=== PATIENT | female | born 1955 | race Hispanic/Latino ===

== ENCOUNTER → 2024-11-05 | Outpatient (CLI) | payer OTHER ==
--- NOTE | 2024-11-05 14:45 | HMCIMG ---
CT CORONARY CALCIFICATION SCORING: Anatomic images were reviewed. The calcium score is being generated and reported separately. This report is for the visualized anatomy only. Visualized portions of the lungs are clear. Hilar and mediastinal structures appear normal. Osseous structures are unremarkable. Impression: 1. Negative noncardiac anatomic findings. 2. The calcium score is 317.5 consistent with a moderate degree of calcified plaque. This is 90th percentile for a patient this age. CT was performed with one or more following dose reduction techniques: automated exposure control, adjustment of the mA and kv according to patient's size, or use of a iterative reconstruction technique.
== END | disposition home or self-care (01) ==
LOC: EDUNIT# 10-30 13:00 → RAH 13:04
PROVIDERS: ATTEND Internal Medicine Cardiovascular Disease
DX: Z13.6 Encounter for screening for cardiovascular disorders (principal)
CPT/HCPCS: 75571

== ENCOUNTER → 2024-11-06 | Outpatient (CLI) | payer OTHER ==
--- NOTE | 2024-11-11 10:33 | HMCSR ---
APPROVED REPORT EXAM: Two-dimensional and M-mode echocardiogram with Doppler and color Doppler. INDICATION ICD: R06.00 Dyspnea 2D Dimensions RVDd3.7 cmLVEF(%)60.8 (>50%)LVED Vol(simp.)138.0 mL IVSd0.9 (0.7-1.1cm)FS(%)33 %LVES Vol(simp.)59.0 mL LVDd5.1 (3.8-5.6cm)Ao Root(2D)2.8 (2.0-3.7cm)LVEF(%, simp.)57 % PWd1.1 (0.7-1.1cm)LVOT diam2.0 (1.8-2.4cm)LA ESV INDEX (BP)33.23 mL/m2 LVDs3.4 (2.5-4.0cm)IVC diam1.6 cm Aortic Valve AoV Vmax1.8 m/Yomi Peak GR13.7 mmHgLVOT Vmax0.9 m/s AoV VTI0.5 mAo Mean GR8.0 mmHgLVOT VTI0.25 m DENICE (VMAX)1.7 cm2Al P1/2T529 msAVA (VTI) 1.7 cm2 Mitral Valve MV E Spux534.1 cm/sDECEL Gjhp441 ms MV A Evzt221.0 cm/sP 1/2 T50 ms E/A ratio0.9MVA (PHT)4.4 cm2 MR Max PG112 mmHg TDI E/E' Mhglhd10.7E/E' Yacbvtk08.1 Pulmonary Valve PV Vmax1.4 m/sPV VTI0.35 mPV Mean GR4 mmHg PV Peak GR7.4 mmHg Tricuspid Valve TR Vmax3.1 m/sRAP (EST) 3 klJjKXMW93.9 mmHg TR Peak GR38.9 mmHg Left Ventricle Left ventricular cavity size is normal. There is normal LV segmental wall motion. There is borderline to mild left ventricular hypertrophy. LVEF is 55-60%. No left ventricle thrombus noted on this study . Grade 2 diastolic dysfunction. Right Ventricle The right ventricle is normal size. The right ventricular systolic function is normal. Atria The left atrium size is normal. The right atrium is mildly dilated. Aortic Valve Aortic valve is trileaflet. Aortic valve leaflets are sclerotic but open well. Trace aortic regurgita tion. There is no aortic valvular stenosis. Mitral Valve The mitral valve is mildly thickened. Mitral regurgitation is trace to mild. There is no mitral valve stenosis. Tricuspid Valve The tricuspid valve leaflets appear normal. There is trace to mild tricuspid regurgitation. Right ines tricular systolic pressure is estimated at 40-50 mmHg. Pulmonic Valve The pulmonic valve is mildly thickened. There is trace pulmonic valvular regurgitation. Great Vessels The aortic root is normal in size. The IVC is normal in size and collapses >50% with inspiration. Pericardium No pericardial effusion. Conclusion Left ventricular cavity size is normal. LVEF is 55-60%. Grade 2 diastolic dysfunction. The right ventricle is normal size. The left atrium size is normal. Aortic valve is trileaflet. Aortic valve leaflets are sclerotic but open well. Trace aortic regurgitation. The mitral valve is mildly thickened. Mitral regurgitation is trace to mild. There is no mitral valve stenosis. There is trace to mild tricuspid regurgitation. Right ventricular systolic pressure is estimated at 40-50 mmHg. There is trace pulmonic valvular regurgitation. The aortic root is normal in size. The IVC is normal in size and collapses >50% with inspiration. No pericardial effusion.
== END | disposition home or self-care (01) ==
LOC: SHCH 13:02
PROVIDERS: ATTEND Internal Medicine Cardiovascular Disease
DX: I08.8 Other rheumatic multiple valve diseases (principal); R06.00 Dyspnea, unspecified
CPT/HCPCS: 93306

== ENCOUNTER 2025-02-23 16:28 | Emergency (ER) | payer OTHER ==
[~2025-02-23] VITALS: Ht 160 cm; Wt 108.9 kg
[2025-02-23 16:43] VITALS: BP 170/62; PULSE 72; RESP 16; TEMP 98.2; O2SAT 98
[2025-02-23] MEDS ORDERED: MUPI22OI2 TP (17:05)
--- NOTE | 2025-02-23 17:05 | ERN ---
ED Note History of Present Illness Stated Complaint: BURN WOUND Chief Complaint: Wound Check Time Seen by MD: 16:39 Time Seen by Midlevel: 16:44 Dictation: 69-year-old female coming in with complaints of a wound to her stomach area. Patient states a week ago she burned herself with hot tea. States she has been cleaning it with in his slipped and applying triple antibiotic, states today she removed the bandage and note a little bit of blood in wanted to come make sure it is not infected. Allergies: Coded Allergies: latex (Unverified Allergy, Unknown, 02/23/25) Past Medical History Past Medical History: Cancer, Diabetes-Type II, High Cholesterol, Hypertension, Renal Disese, TIA Additional Past Medical Hx: BREAST CA Surgical History: Other Surgical History Other: RT MASECTOMY Review of System Dictation Constitutional: Negative for fever,chills, and weight loss Eyes: Negative for injury, pain,redness, and discharge ENT: Negative for injury,pain or swelling Cardiovascular: Negative for chest pain, palpitations, and edema Respiratory: Negative for shortness of breath, cough, and wheezing, Abdomen/GI: Negative for abdominal pain, nausea, vomiting, diarrhea, and constipation Back: Negative for injury and pain : Negative for injury, bleeding and discharge MS/Extremity: Negative for injury and deformity Skin: Negative for rash, and discoloration Neuro: Negative for headache, weakness, numbness, tingling, and seizure Psych: Negative for suicide ideation, homicidal ideation, and hallucinations Review of Systems: was completed Initial Vital Sign VS Vital Signs Date Time Temp Pulse Resp B/P (MAP) Pulse Ox O2 Delivery O2 Flow Rate FiO2 02/23/25 16:31 98.1 73 20 174/60 98 Room Air 0 02/23/25 16:43 21 Physical Exam Dictation General: awake, alert, NAD Head/Face: Normocephalic, atraumatic Eyes: PERRL, EOMI, vision at baseline ENT: oral cavity clear, TMs clear, no signs of infection Neck: Trachea midline, supple, no nuchal rigidity Cardiovascular: RRR, normal S1/S2, No MRGs, no JVD Respiratory: CTAB, no respiratory distress, No rales or wheezes Abdomen: Soft, non-tender, non-distended, normal bowel sounds, no guarding or rebound. Skin: Warm, dry, normal turgor, no rash, wound noted to the umbilical area, consistent with a burn that had a blister and popped, there is partial scabbing in slight area in the corner where it is more raw. This is probably where the patient pulled off the bandage today and it was stuck. No surrounding erythema, no fluctuance, no drainage. No suspicious for infectious process MS/Extremity: Pulses equal, no cyanosis, neurovascular intact, FROM Neuro: COAx4, GCS 15, strength 5/5, CN 2-12 intact, normal cerebellar exam, normal gait, Psych: Normal behavior, mood, and affect normal ED Course ED Course Vital Signs Date Time Temp Pulse Resp B/P (MAP) Pulse Ox O2 Delivery O2 Flow Rate FiO2 02/23/25 16:43 98.2 72 16 170/62 98 Room Air* 0 21 02/23/25 16:31 98.1 73 20 174/60 98 Room Air 0 Medical Decision Making MDM MDM: 69-year-old female coming in with complaints of a wound to her stomach area. Patient states a week ago she burned herself with hot tea. States she has been cleaning it with in his slipped and applying triple antibiotic, states today she removed the bandage and note a little bit of blood in wanted to come make sure it is not infected. Educated patient on wound care and when to return back to the hospital. Educated patient she needs to just cleaned the area with soap and water and apply the bacitracin that they will prescribe and follow up with PCP. Patient verbalized understanding, answered all questions. Differential diagnosis: Cellulitis, abscess Rationale: Tests considered and ordered secondary to shared decision making include: Previous outside records reviewed: Old ER visits. Risk of complication and/or morbidity or mortality of patient management: None Medications-Per medication reconciliation Need for hospitalization: Patient does not meet criteria for hospitalization. Need for emergency major/minor surgery: No There are no social concerns with this patient. Prescription drug management Prescriptions will include symptomatic care Patient's prior external medical records from other ER visits were reviewed by me as indicated. Prior testing and results from previous visits were reviewed. Prior tests were taken into account with medical decision making and resource utilization, independent historian/historians were used to obtain complete medical history. I independently interpreted the test that were performed, results were reviewed by me and considered findings on radiology if ordered. Medical management and examination interpretation discussions were had by me with other qualified healthcare professionals as indicated for the patient's care. DX & DISP Disposition: Discharge Departure Impression: Primary Impression: Burn Condition: Stable Scripts Mupirocin (Mupirocin Ointment) 2 % Oint 1 APPL TP BID for 5 Days, #15 GM 0 Refills apply to affected area(s) Prov: RAMON BARBOSA NP 02/23/25 Additional Instructions: Cleaned wound with soap and water then apply the ointment. Apply the cale dhesive bandage and avoid ripping off the scab. Follow up with PCP return to the hospital if anything worsens. Referrals: LATRICE POP MD (PCP) Time of Disposition: 17:05 I have reviewed the case, and I agree with, Diagnosis and Plan RAMON BARBOSA NP February 23, 2025 17:05
== END 2025-02-23 17:12 | disposition home or self-care (01) ==
LOC: EDH 16:28
DX: T28.2XXA Burn of other parts of alimentary tract, initial encounter (principal); E11.9 Type 2 diabetes mellitus without complications; E78.00 Pure hypercholesterolemia, unspecified; I10 Essential (primary) hypertension; Z85.3 Personal history of malignant neoplasm of breast; Z86.73 Personal history of transient ischemic attack (TIA), and cerebral infarction without residual deficits; X12.XXXA Contact with other hot fluids, initial encounter; Y93.89 Activity, other specified; Y92.89 Other specified places as the place of occurrence of the external cause; Y99.8 Other external cause status
CPT/HCPCS: 99283

== ENCOUNTER 2025-08-02 19:47 | Emergency (ER) | payer OTHER ==
[~2025-08-02] VITALS: Ht 160 cm; Wt 110.7 kg
[~2025-08-02 19:47] MED LIST: MUPI22OI2 TP
--- NOTE | 2025-08-02 20:13 | NUR ---
PATIENT REPORTS SHE ACCIDENTALLY INJECTED HERSELF WITH 25 UNITS OF REGULAR INSULIN INSTEAD OF LANTUS ABOUT 1 HR [employer]
--- NOTE | 2025-08-02 20:17 | ERN ---
ED Note History of Present Illness Stated Complaint: OVER DOSE OF INSULIN Chief Complaint: Overdose Time Seen by MD: 19:53 Time Seen by Midlevel: 19:53 Dictation: The patient is a 70-year-old female with a history of diabetes, hypertension, hyperlipidemia who presents to the emergency department after accidentally confusing her Lantus with Humulin R. patient reports that she usually takes 7 units of Humulin R at bedtime and she accidentally injected 25 units subQ About 30 minutes prior to arrival. Patient currently denies any dizziness, headache, denies any complaints. Allergies: Coded Allergies: latex (Unverified Allergy, Unknown, 02/23/25) Home Meds Active Scripts Mupirocin (Mupirocin Ointment) 2 % Oint, 1 APPL TP BID for 5 Days, #15 GM 0 Refills apply to affected area(s) Prov:BARBOSARAMON GM 02/23/25 Past Medical History Past Medical History: Cancer, CVA, Diabetes-Type I, Diabetes-Type II, High Cholesterol, Hypertension, Renal Disese, TIA Additional Past Medical Hx: BREAST CA Surgical History: Hysterectomy, Other Surgical History Other: RT MASECTOMY RN Note Reviewed/Agreed w/PFSH: Yes Review of System Dictation Constitutional: Negative for fever,chills, and weight loss Eyes: Negative for injury, pain,redness, and discharge ENT: Negative for injury,pain or swelling Cardiovascular: Negative for chest pain, palpitations, and edema Respiratory: Negative for shortness of breath, cough, and wheezing, Abdomen/GI: Negative for abdominal pain, nausea, vomiting, diarrhea, and constipation Back: Negative for injury and pain : Negative for injury, bleeding and discharge MS/Extremity: Negative for injury and deformity Skin: Negative for rash, and discoloration Neuro: Negative for headache, weakness, numbness, tingling, and seizure Psych: Negative for suicide ideation, homicidal ideation, and hallucinations Initial Vital Sign VS Vital Signs Date Time Temp Pulse Resp B/P (MAP) Pulse Ox O2 Delivery O2 Flow Rate FiO2 08/02/25 19:49 98.2 97 20 241/107 97 Room Air 08/02/25 21:11 0 21 Physical Exam Dictation Vital Signs reviewed General Appearance: Alert, oriented x 3, no acute distress, well developed, nourished. Head and Face: non-traumatic. Eyes: PERRL, pink conjunctivas, eyelid no trauma, anterior chamber with arcus senilis. Ears: Pinnas intact and no signs of trauma or erythema ear canals clear and no discharge TM no erythema Nose: No discharge, no bleeding. Oropharynx: Mouth normal, tongue pink. pharynx clear,no erythema, tonsils no exudates, no abscesses noted, mucous membrane moist Neck: Supple, non-tender, no thyromegaly, no masses, no JVD, no bruits Breast:Deferred Chest:No tenderness, no crepitus, no paradoxical movement, no retractions Lungs:Clear, well-ventilated, symmetric, no rales, no wheezing, no rhonchi, no stridor, good breath sounds bilaterally Heart: Regular rate, regular rhythm, no murmur, no gallops Vascular: no peripheral edema, Abdomen: Soft, positive bowel sounds, nondistended, no guarding, nontender, no rebound, no masses no hepatomegaly, no splenomegaly, no Greenwood's sign, no hernias. Rectal: Deferred Genital: Deferred Neurological: Normal speech, motor function intact, sensory function intact Musculoskeletal: Neck nontender, full range of motion, back nontender, full range of motion, Extremities: nontender, full range of motion Skin: Color pink, dry, no turgor, no rash, no lacerations, no abrasions, no contusions. Lymphatic: Deferred Results (Laboratory/Radiology) Laboratory/Radiology Laboratory Tests Test 08/02/25 19:52 08/02/25 20:19 08/02/25 21:58 Whole Blood Glucose 209 MG/DL (70-110) H 120 MG/DL (70-110) H White Blood Count 8.1 K/uL (4.8-10.8) Red Blood Count 4.20 MIL/uL (4.00-5.50) Hemoglobin 13.0 g/dL (12.0-16.0) Hematocrit 39.2 % (36-48) Mean Corpuscular Volume 93.3 fL (79-99) Mean Corpuscular Hemoglobin 31.0 pg (27.0-33.0) Mean Corpuscular Hemoglobin Concent 33.2 g/dL (32.0-36.0) Red Cell Distribution Width 13.2 % (11.0-15.5) Platelet Count 260 K/uL (130-400) Mean Platelet Volume 10.5 fL (7.5-10.5) Immature Granulocyte % (Auto) 0.1 % (0-1) Neutrophils (%) (Auto) 49.6 % (40.0-77.0) Lymphocytes (%) (Auto) 39.6 % (21.0-51.0) Monocytes (%) (Auto) 5.3 % (3.0-13.0) Eosinophils (%) (Auto) 5.2 % (0.0-8.0) Basophils (%) (Auto) 0.2 % (0.0-5.0) Neutrophils # (Auto) 4.0 K/uL (1.8-7.7) Lymphocytes # (Auto) 3.2 K/uL (1.0-4.8) Monocytes # (Auto) 0.4 K/uL (0.1-1.0) Eosinophils # (Auto) 0.42 K/uL (0.00-0.70) Basophils # (Auto) 0.02 K/uL (0.00-0.20) Absolute Immature Granulocyte (auto 0.01 K/uL (0-1) Nucleated Red Blood Cells 0.0 % (0.0-0.19) Sodium Level 143 mmol/L (136-145) Potassium Level 3.1 mmol/L (3.5-5.1) L Chloride Level 103 mmol/L (101-111) Carbon Dioxide Level 29 mmol/L (21-32) Blood Urea Nitrogen 37 mg/dL (7-18) H Creatinine 1.9 mg/dL (0.5-1.0) H Glomerular Filtration Rate Calc 28 mL/min (>90) Random Glucose 220 mg/dL (70-105) H Total Calcium 9.0 mg/dL (8.5-10.1) Labs Reviewed?: Yes ED Course ED Course Orders Procedure Category Date Status Time Cbc With Differential LAB 08/02/25 Complete 19:51 Basic Metabolic Panel LAB 08/02/25 Complete 19:51 Bedside Glucose CPOE 08/02/25 Transmitted Fingerstick 19:51 *Nursing CPOE 08/02/25 Transmitted Communication: 20:05 Hydralazine 20mg Inj PHA 08/02/25 Complete (Apresoline 20mg In 21:00 Potassium Bicarb/Cit PHA 08/02/25 Complete Ac 25meq (K-Lyte Ta 21:30 Bedside Glucose CPOE 08/02/25 Transmitted Fingerstick 21:41 Current Medications Medications (Trade) Dose Ordered Sig/Yordy Route PRN Reason Start Time Stop Time Status Last Admin Dose Admin Hydralazine HCl (APRESOLine 20MG INJ) 10 mg ONCE ONCE IV 08/02/25 21:00 08/02/25 21:01 DC 08/02/25 21:24 Potassium Bicarbonate (K-Lyte Tablet Eff 25 Meq Tablet.eff) 25 meq ONCE ONCE PO 08/02/25 21:30 08/02/25 21:31 DC 08/02/25 21:39 Vital Signs Date Time Temp Pulse Resp B/P (MAP) Pulse Ox O2 Delivery O2 Flow Rate FiO2 08/02/25 22:57 98.4 68 18 157/85 97 Room Air* 0 21 08/02/25 21:49 77 18 163/63 98 Room Air* 0 21 08/02/25 21:24 195/78 08/02/25 21:11 68 18 200/75 98 Room Air* 0 21 08/02/25 19:49 98.2 97 20 241/107 97 Room Air Medical Decision Making MDM The patient is a 70-year-old female with a history of diabetes, hypertension, hyperlipidemia who presents to the emergency department after accidentally confusing her Lantus with Humulin R. patient reports that she usually takes 7 units of Humulin R at bedtime and she accidentally injected 25 units subQ About 30 minutes prior to arrival. Patient currently denies any dizziness, headache, denies any complaints. CBC showed no leukocytosis, no anemia, chemistry showed initial glucose of one only, mild hypokalemia. Patient's potassium was replaced. Patient was also fed. Glucose trends down but remained stable. Patient has a continues monitoring device and patient advised to continue monitoring glucose at home. Patient reports she had not eaten dinner. Patient advised to you did not refill going to bed. Patient reports history of CKD . Patient otherwise in no acute distress, nontoxic appearance, asymptomatic. Differential diagnosis: Hypoglycemia, electrolyte imbalance, accidental overdose Need for hospitalization: Patient does not meet criteria for hospitalization. There are no social concerns with this patient. DX & DISP Disposition: Discharge Departure Impression: Primary Impression: Accidental overdose of insulin Additional Impressions: Hypokalemia, CKD (chronic kidney disease) Condition: Stable Additional Instructions: Please continue to monitor your blood glucose at home. Make sure you eat dinner before going to bed tonight. If you sugar decreases in you are not able to bring it up please return to ER for further evaluation. FOLLOW-UP WITH PRIMARY CARE PROVIDER IN 1 TO 2 DAYS. TAKE MEDICATIONS DIRECTED HERE IN THE EMERGENCY ROOM. OKAY TO CONTINUE HOME MEDICATIONS UNLESS OTHERWISE DISCUSSED DURING YOUR VISIT IN THE EMERGENCY ROOM TODAY. RETURN TO YOUR NEAREST EMERGENCY ROOM IF SYMPTOMS WORSEN OR IF THERE IS NO IMPROVEMENT. CALL 911 IF YOU NEED IMMEDIATE ASSISTANCE. TAKE TYLENOL [id number] NEEDED AND IF NO CONTRAINDICATIONS ARE PRESENT. INCREASE ORAL HYDRATION. A WOUND CULTURE OR URINE CULTURE WAS ORDERED HERE IN THE EMERGENCY ROOM DEPARTMENT PLEASE FOLLOW-UP WITH PRIMARY CARE PROVIDER AND ADVISE THEM TO GET REPEAT PORTS FROM OUR FACILITY. IF YOU HAD ANY DOTTY WRAP/SPLINTS THAT WERE APPLIED HERE, PLEASE DO NOT REMOVE THEM UNTIL YOU SEE YOUR PRIMARY CARE OR SPECIALTY. Referrals: LATRICE POP MD (PCP) Time of Disposition: 22:42 I have reviewed the case, and I agree with, Diagnosis and Plan I am the attending physician. I was available in the ED for consultation. I have reviewed documents and agree with the diagnosis and plan ENRIQUE BAUER Aug 02, 2025 20:17 KEITH ESTEBAN MD Aug 02, 2025 23:31
[2025-08-02 20:25] LABS: IMMATURE GRANULOCYTE ABSOLUTE 0.01 K/uL (0-1); NUCLEATED RED BLOOD CELLS 0.0 % (0.0-0.19); PLATELET COUNT (AUTO) 260 K/uL (130-400); RED BLOOD CELL COUNT(AUTO) 4.20 MIL/uL (4.00-5.50); RED CELL DISTRIBUTION WIDTH 13.2 % (11.0-15.5); WHITE BLOOD COUNT (AUTO) 8.1 K/uL (4.8-10.8)
[2025-08-02 20:36] LABS: CREATININE 1.9 mg/dL (0.5-1.0); GLOMERULAR FILTR. RATE CALC 28.0 mL/min (>90); GLUCOSE,RANDOM 220.0 mg/dL (70-105); SODIUM SERUM 143.0 mmol/L (136-145); UREA NITROGEN, BLOOD 37.0 mg/dL (7-18)
[2025-08-02 22:57] VITALS: BP 157/85; PULSE 68; RESP 18; TEMP 98.5; O2SAT 97
== END 2025-08-02 23:05 | disposition home or self-care (01) ==
LOC: EDH 19:47
DX: T38.3X1A Poisoning by insulin and oral hypoglycemic [antidiabetic] drugs, accidental (unintentional), initial encounter (principal); I12.9 Hypertensive chronic kidney disease with stage 1 through stage 4 chronic kidney disease, or unspecified chronic kidney disease; E10.22 Type 1 diabetes mellitus with diabetic chronic kidney disease; N18.9 Chronic kidney disease, unspecified; E87.6 Hypokalemia; E78.00 Pure hypercholesterolemia, unspecified; Z85.3 Personal history of malignant neoplasm of breast; Z86.73 Personal history of transient ischemic attack (TIA), and cerebral infarction without residual deficits; Z90.710 Acquired absence of both cervix and uterus; Z91.040 Latex allergy status; Y92.89 Other specified places as the place of occurrence of the external cause
CPT/HCPCS: 99285; 96374; 80048; 85025; 82948 ×2; 36415; J0360